=== PATIENT | female | born 1970 | race Caucasian/White ===

== ENCOUNTER 2016-08-11 22:10 | Emergency (ER) | payer OTHER ==
[2016-08-11 22:10] VITALS: BMI 19.5
[2016-08-11 22:16] VITALS: TEMP 98.3
[2016-08-11] MEDS ORDERED: OXYCODONE HCL 5 MG TABLET PO ONE (23:39)
[2016-08-11] MEDS ORDERED: CYCLOBENZAPRINE 10 MG TAB PO ONE (23:39)
[2016-08-11] MEDS ORDERED: PREDNISONE 20 MG TAB PO ONE (23:39)
--- NOTE | 2016-08-11 23:39 | EDPRACDOC ---
- General Information Chief Complaint: Back Pain Stated Complaint: FALL: LT HIP PAIN Time Seen by Provider: 08/11/16 22:41 Information Source: Patient Mode Of Arrival: Car Home Medications: Home Medications Pantoprazole Sodium [Protonix] 40 mg PO DAILY 07/01/15 Fluoxetine HCl [Prozac] 40 mg PO HS 07/03/16 Gabapentin 300 mg PO HS 07/03/16 Cyclobenzaprine HCl [Flexeril] 10 mg PO TID #20 tablet 08/12/16 Ketoprofen 75 mg PO TID #15 capsule 08/12/16 Prednisone [Deltasone] 20 mg PO BID #10 tablet 08/12/16 Allergies/Adverse Reactions: Allergies Allergy/AdvReac Type Severity Reaction Status Date / Time lorazepam [From Ativan] Allergy Unknown See Verified 08/11/16 22:12 Comments Penicillins Allergy Unknown Rash-Genera Verified 08/11/16 22:12 lized - History of Present Illness Onset: 2 days ago HPI: PT C/O LEFT SIDED LOWER BACK PAIN RADIATING DOWN HER LEFT LEG AFTER MULTIPLE FALLS 2 DAYS AGO. PT DENIES LOSS OF BOWEL OR BLADDER AT THIS TIME. Pain Location: Reports: Thoracic Pain Radiates To: Reports: Thigh, Buttock, Calf Pain Caused By: Reports: Fall Circumstances: Reports: Fall Relevant History: Reports: Chronic back pain Currently ?: No Pain Severity: Reports: Moderate Pain Quality: Reports: Aching, Sharp Worsened By: Reports: Movement, Twisting, Walking Associated Signs and Symptoms: Reports: None ED Past Medical History - History Reviewed Yes Nurses notes reviewed and agree except as marked Travel Outside of [place] in the Last 3 Months?: No - Patient Medical History Neurological History: Denies: Seizures, Migraine Cardiac History: Denies: Hypertension GI/ History: Reports: Gastroesophageal Reflux Psychological History: Reports: Anxiety. Denies: Depression Systemic History: Denies: Cancer, Diabetes Surgical History: Reports: Cholecystectomy. Denies: Hysterectomy - Family Medical History Reports: Hypertension (MOTHER), Diabetes (MOTHER), Cancer (FATHER), Cardiac Disorders (MOTHER). Denies: Stroke - Social Medical History Smoking Status: Heavy tobacco smoker (5 or more cigarettes/day or daily pipe/ cigar) ETOH: None Substance Abuse: None Lives With: Other Lives In: Home EDM Review of Systems - Review of Systems ROS Negative Except as Marked: Yes All systems reviewed and were negative except as marked Constitutional: No Symptoms Reported. negative: Fever, Chills, Weakness, Fatigue, Loss of Appetite Eyes: No Symptoms Reported. negative: Redness, Blurred Vision, Double Vision, Discharge, Pain, Light Sensitive, Photophobia Ears: No Symptoms Reported. negative: Pain, Hearing Loss, Drainage, Ear Pulling Throat: No Symptoms Reported. negative: Pain, Swelling Nose: No Symptoms Reported. negative: Congestion, Bleeding, Discharge, Injection, Swelling, Deformity, Ecchymosis, Tender, Abrasion, Laceration Mouth: No Symptoms Reported. negative: Pain, Drooling Respiratory: No Symptoms Reported. negative: Cough, Brassy Cough, Barky Cough, Shortness of Breath, Wheezing, Hemoptysis Cardiovascular: No Symptoms Reported. negative: Chest Pain, Palpitations, Syncope, Edema, Orthopnea, PND, Skin Mottling, Cyanosis Gastrointestinal: No Symptoms Reported. negative: Pain, Constipation, Nausea, Vomiting, Diarrhea, Melena, Formula Intolerance Genitourinary: No Symptoms Reported. negative: Dysuria, Hematuria, Frequency, Discharge, Bleeding, Testicular Pain, Neurological: No Symptoms Reported. negative: Headache, Dizziness, Seizure, Numbness, Weakness, Speech Difficulty, Gait Difficulty Musculoskeletal: Back (LEFT LOWER LUMBAR RADIATING DOWN LEFT LEG). negative: Arm, Ankle, Chestwall, Elbow, Forearm, Femur, Foot, Hand, Hip, Knee, Leg, Neck, Pelvis, Ribs, Shoulder, Wrist Integumentary: No Symptoms Reported. negative: Itching, Rash, Bruising, Wound Allergic/Immunologic: No Symptoms Reported. negative: Hives, Itching Hematologic: No Symptoms Reported. negative: Lymphadenopathy, Easy Bruising, Easy Bleeding Endocrine: No Symptoms Reported. negative: Weight Gain, Weight Loss Psychiatric: No Symptoms Reported. negative: Anxiety, Depression, Hallucinations, Insomnia, Suicidal - Physical Exam Constitutional: No apparent distress, Alert (Awake) Oriented to: Time, Person, Place Last recorded Vital Signs: Last Vital Signs Temp 98.3 F 08/11/16 22:13 Pulse 117 08/11/16 22:13 Resp 20 08/11/16 22:13 BP 120/75 08/11/16 22:13 Pulse Ox 97 08/11/16 22:13 Oxygen Pulse Oxygen Saturation 97 O2 Device Room Air Oxygen Flow Rate Fraction of Inspired Oxygen ( FIO2) - HEENT Head: Normal ( normocephalic) Eye Exam: Normal (PERRL, EOMI, Sclera white) Oropharynx: Normal (Pharynx:Moist without exudate,Gums-no swelling) Tympanic Membrane: Normal ENT EAC: Normal TMJ: Normal Nose: No Symptoms Reported (septum midline) Neck: Normal (FROM, trachea at midline) - Respiratory/Cardiovascular Respiratory: Normal - CTA (BBS clear to auscultation without adventitious sounds ) Cardiovascular: Normal (RRR without murmur, gallop or rub) - GI Auscultation: Normal (NABS) Palpation: Normal (Soft,No rebound or guarding, non distended) Tenderness: Non tender Daniel's Sign: Negative - Musculoskeletal Back: Normal (Non-Tender) Extremities: Normal (Normal tone, Pulses 2+ No cyanosis or edema, FROM) - Integumentary Skin: Normal, Warm, Dry Lymphatics: Normal (no adenopathy) - Neurologic Memory Impaired: Normal Motor Function: Normal (Normal tone, Pulses 2+ No cyanosis or edema, FROM) Cranial Nerve: Normal (CN II-X11 intact sensation, strength 5/5) Cerebellar: Normal Mood Description: Normal Perception: Normal ED Back Exam - Neurologic Motor Deficit: None Reflexes: Normal - Musculoskeletal Cervical: Normal Thoracic: Normal Lumbar: Tender Midline: Tender Paraspinous: Tender Straight Leg Raise: Negative Pelvis: Normal - Differential Diagnosis Fracture, Musculoskeletal pain, Other (BULGING DISCS), Strain - Diagnostic Imaging LSPINE Image interpreted by: Radiologist IMPRESSION: No fracture or subluxation of the lumbar spine. Decision Time to Discharge: 01:00 - Departure Disposition: Home Condition: Stable Final Diagnosis: Lumbar sprain, Acute low back pain, Lumbar radiculopathy Instructions: Thoracic (Lumbar) Strain, Acute Low Back Pain (ED) Education/Counseling Given To: Patient Education/Counseling Given Regarding: Diagnosis, Treatment, Prognosis, Follow Up Referrals: Denis Leija MD [Primary Care Provider] - One Week Aristeo Espinal MD [Staff Physician] - One Week Prescriptions: Cyclobenzaprine HCl [Flexeril] 10 mg PO TID #20 tablet Ketoprofen 75 mg PO TID #15 capsule Prednisone [Deltasone] 20 mg PO BID #10 tablet Additional Instructions: RETURN FOR WORSE OR DIFFERENT SYMPTOMS.
--- NOTE | 2016-08-12 00:45 | DIRPT ---
CLINICAL DATA: Lumbosacral back pain after multiple slip and fall on ice. Two falls on Tuesday and 1 fall on Tuesday. EXAM: LUMBAR SPINE - COMPLETE 4+ VIEW COMPARISON: None. FINDINGS: The alignment is maintained. Vertebral body heights are normal. There is no listhesis. The posterior elements are intact. Disc spaces are preserved. No fracture. Sacroiliac joints are symmetric and normal. IMPRESSION: No fracture or subluxation of the lumbar spine. Electronically Signed By: Ashtyn Bhatia M.D. On: 08/12/2016 00:42
[2016-08-12 01:12] VITALS: BP 123/74; PULSE 88
== END 2016-08-12 01:11 | disposition home or self-care (01) ==
LOC: ED 22:10
DX: S39.012A Strain of muscle, fascia and tendon of lower back, initial encounter (principal); W19.XXXA Unspecified fall, initial encounter; M54.16 Radiculopathy, lumbar region
CPT/HCPCS: 72110; 99283; J3490